=== PATIENT | male | born 1960 | race Caucasian/White ===

== ENCOUNTER → 2017-11-27 | Outpatient (CLI) | payer BC ==
[~2017-11-27] MED LIST: ASPIRIN81 MG PO; B COMPLEX1 TA1 PO; B121000 MCG/1 IM; CELEXA20 MG PO; FOLIC ACID1 MG PO; HYDROCHLOROTHIA25 MG PO; LISINOPRIL/HCTZ1 TA4 PO; LISINOPRIL10 MG PO; LISINOPRIL40 MG PO; LOPRESSOR; PREDNISONE20 MG PO; SYNTHROID0.025 MG PO; ZITHROMAX250 MG PO; ZOFRAN ODT4 MG SL
== END | disposition home or self-care (01) ==
LOC: RAD 08:36
DX: M17.11 Unilateral primary osteoarthritis, right knee (principal)

== ENCOUNTER → 2018-04-17 | Outpatient (CLI) | payer BC | END | disposition home or self-care (01) | LOC: RAD 12:11 | DX: M25.511 Pain in right shoulder (principal) ==

== ENCOUNTER 2021-02-26 12:43 | Inpatient (IN) | payer OTHER, BC ==
[~2021-02-26] VITALS: Ht 190.5 cm; Wt 89.4 kg
[~2021-02-26 12:43] MED LIST changes: +B12 ACTIVE1000 MCG PO; +CLARITIN10 MG PO; +NATURE'S BLEND F1 MG PO; +NORVASC10 MG PO; +TENORMIN25 MG PO; +ZESTRIL20 MG PO
[2021-02-26 13:05] VITALS: BP 84/56
[2021-02-26 16:00] VITALS: BP 86/66
[2021-02-26 20:00] VITALS: BP 86/56
[2021-02-27] VITALS: BP 84/54
[2021-02-27 03:42] VITALS: BP 73/50
== END 2021-02-27 08:10 | DRG 177 ==
LOC: 4E 12:43 → ICCU 12:43 → 4E 02-27 03:01
PROVIDERS: ADMIT Internal Medicine; ATTEND Internal Medicine
PROC: 5A0935A Assistance with Respiratory Ventilation, Less than 24 Consecutive Hours, High Flow/Velocity Cannula (ICD-10-PCS; principal; 2021-02-26)
DX: U07.1 COVID-19 (principal); J96.00 Acute respiratory failure, unspecified whether with hypoxia or hypercapnia; E43 Unspecified severe protein-calorie malnutrition; N17.0 Acute kidney failure with tubular necrosis; E87.1 Hypo-osmolality and hyponatremia; E55.9 Vitamin D deficiency, unspecified; Z51.5 Encounter for palliative care; Z88.0 Allergy status to penicillin; Z79.899 Other long term (current) drug therapy